=== PATIENT | female | born 1980 | race Caucasian/White ===

== ENCOUNTER 2022-08-05 06:00 | Inpatient (IN) | payer OTHER ==
[~2022-08-05 06:00] MED LIST: CITRIC ACID/SODIUM CITRATE 30 ML UNIT-DOSE CUP PO ONE; ELECTROLYTE-148 SOLN 500 ML IV SCH
[2022-08-05] MEDS ORDERED: ELECTROLYTE-148 SOLN 500 ML IV SCH (06:30)
[2022-08-05 07:47] VITALS: BMI 31.9
[2022-08-05] MEDS ORDERED: OXYTOCIN 30 UNITS in 0.9% NS 30 UNIT/500 ML INFUS.BAG IVPB ONE (08:00)
[2022-08-05] MEDS ORDERED: DEXAMETHASONE SOD PHOSPHATE 4 MG/1 ML VIAL ONE (08:01)
[2022-08-05] MEDS ORDERED: ceFAZolin SODIUM 1 GM VIAL ONE (08:01)
[2022-08-05] MEDS ORDERED: ONDANSETRON 4 MG/2 ML VIAL ONE (08:01)
[2022-08-05] MEDS ORDERED: METOCLOPRAMIDE HCL INJECTION 10 MG/2 ML VIAL ONE (08:01)
[2022-08-05] MEDS ORDERED: morphine SULFATE/PF 1 MG/2 ML (2cc Syringe - QUVA) ONE (08:02)
[2022-08-05] MEDS ORDERED: PHENYLEPHRINE HCL 10 MG/1 ML SINGLE DOSE VIAL ONE (08:02)
[2022-08-05] MEDS ORDERED: FENTANYL CITRATE/PF 50 MCG/ML VIAL ONE (08:02)
[2022-08-05] MEDS ORDERED: ELECTROLYTE-148 SOLN 500 ML IV ONE (08:08)
[2022-08-05] MEDS ORDERED: ELECTROLYTE-148 SOLN 1,000 ML IV SCH (08:15)
[2022-08-05] MEDS ORDERED: morphine SULFATE/PF 1 MG/2 ML (2cc Syringe - QUVA) IT ONE (08:23)
[2022-08-05] MEDS ORDERED: KETOROLAC TROMETHAMINE 30 MG/1 ML VIAL ONE (08:59)
[2022-08-05] MEDS: OXYTOCIN 20 UNITS in 0.9% NS 20 UNIT/1,000 ML INFUS.BAG IV SCH ×2 (09:35→17:01)
[2022-08-05] MEDS ORDERED: ONDANSETRON 4 MG/2 ML VIAL IVPUSH PRN (09:41)
[2022-08-05] MEDS ORDERED: IBUPROFEN 800 MG/8 ML IJ IVPB PRN (09:42)
[2022-08-05] MEDS ORDERED: SENNOSIDES/DOCUSATE COMBO (SENNA PLUS) TABLET (UD) PO PRN (09:42)
[2022-08-05] MEDS ORDERED: METHYLERGONOVINE MALEATE 0.2 MG/1 ML AMP IM PRN (09:42)
[2022-08-05] MEDS ORDERED: ACETAMINOPHEN 1000 MG/100 ML BAG IVPB PRN (09:45)
[2022-08-05] MEDS: FERROUS SO4 325 MG TABLET (FP) PO SCH ×2 (11:43→21:51)
[2022-08-05] MEDS: PRENATAL VITAMINS W/ FOLIC ACID TABLET (FP) PO SCH (11:43)
[2022-08-05] MEDS ORDERED: ACETAMINOPHEN INJECTION 100 ML IVPB ONE (12:28)
[2022-08-05] MEDS ORDERED: oxyCODONE HCL 5 MG TABLET PO PRN (21:42)
[2022-08-05] MEDS: SIMETHICONE 80 MG TAB.CHEW (FP) PO PRN (21:50)
[2022-08-05] MEDS: IBUPROFEN 600 MG TABLET (FP) PO PRN (21:51)
[2022-08-06] MEDS: IBUPROFEN 600 MG TABLET (FP) PO PRN ×3 (04:07→20:28)
[2022-08-06] MEDS: SIMETHICONE 80 MG TAB.CHEW (FP) PO PRN ×4 (04:07→20:29)
[2022-08-06 06:33] LABS: BASO % 0.4 % (0-2.0); EOS % 0.5 % (0-4.5); HEMATOCRIT 28.2 % (32.4-45.2); HEMOGLOBIN 9.5 GM/dL (10.7-15.3); LYMPH % 16.8 % (8-40); MCH 31.2 pg (25.7-33.7); MCHC 33.6 g/dl (32.0-36.0); MEAN CELL VOLUME 92.9 fl (80-96); MEAN PLT VOLUME 9.5 fl (7.5-11.1); MONO % 10.8 % (3.8-10.2); NEUT % 71.5 % (42.8-82.8); PLATELET COUNT 158 10^3/uL (134-434); RBC 3.04 M/mm3 (3.60-5.2); RDW 13.9 % (11.6-15.6); WHITE BLOOD COUNT 14.4 K/mm3 (4.0-10.0)
[2022-08-06] MEDS: ACETAMINOPHEN 325 MG TABLET (FP) PO PRN ×2 (07:12→15:11)
[2022-08-06] MEDS: oxyCODONE HCL 5 MG TABLET PO PRN (08:33)
[2022-08-06] MEDS: FERROUS SO4 325 MG TABLET (FP) PO SCH ×2 (09:02→21:17)
[2022-08-06] MEDS: PRENATAL VITAMINS W/ FOLIC ACID TABLET (FP) PO SCH (09:02)
[2022-08-06] MEDS ORDERED: BISACODYL 10 MG SUPP.RECT RC PRN (09:42)
[2022-08-06] MEDS: OXYTOCIN 20 UNITS in 0.9% NS 20 UNIT/1,000 ML INFUS.BAG IV SCH (09:57)
[2022-08-07] MEDS: oxyCODONE HCL 5 MG TABLET PO PRN (01:23)
[2022-08-07] MEDS: IBUPROFEN 600 MG TABLET (FP) PO PRN (06:31)
[2022-08-07] MEDS: PRENATAL VITAMINS W/ FOLIC ACID TABLET (FP) PO SCH (09:03)
[2022-08-07] MEDS: SIMETHICONE 80 MG TAB.CHEW (FP) PO PRN (09:03)
[2022-08-07] MEDS: FERROUS SO4 325 MG TABLET (FP) PO SCH (09:03)
[2022-08-07 09:43] VITALS: BP 119/80; PULSE 79; RESP 18; TEMP 97.9
== END 2022-08-07 13:00 | disposition home or self-care (01) | DRG 561 ==
LOC: JLDR 06:00 → J3W 14:05
PROVIDERS: ADMIT Obstetrics & Gynecology; ATTEND Obstetrics & Gynecology
DX: O14.95 Unspecified pre-eclampsia, complicating the puerperium (principal); J98.11 Atelectasis; R00.1 Bradycardia, unspecified
CPT/HCPCS: 36415; 85025; 88307-TC

== ENCOUNTER 2022-08-10 11:01 | Inpatient (IN) | payer OTHER ==
[2022-08-10] MEDS ORDERED: hydrALAZINE HCL 20 MG/ML VIAL IVPUSH ONE (11:35)
[2022-08-10] MEDS ORDERED: hydrALAZINE HCL 20 MG/ML VIAL ONE (11:39)
[2022-08-10 11:57] LABS: VENOUS BASE EXCESS -0.5 mmol/L (-2-2); VENOUS O2 SATURATION 58.1 % (70-80); VENOUS PCO2 42.9 mmHg (38-52); VENOUS PH 7.379 (7.310-7.410)
[2022-08-10] MEDS ORDERED: METOCLOPRAMIDE HCL INJECTION 10 MG/2 ML VIAL IVPUSH ONE (11:57)
[2022-08-10] MEDS ORDERED: ACETAMINOPHEN 1000 MG/100 ML BAG IVPB ONE (11:57)
[2022-08-10 11:59] LABS: BASO % 0.4 % (0-2.0); EOS % 1.3 % (0-4.5); HEMATOCRIT 33.3 % (32.4-45.2); HEMOGLOBIN 11.1 GM/dL (10.7-15.3); LYMPH % 26.9 % (8-40); MCH 31.5 pg (25.7-33.7); MCHC 33.3 g/dl (32.0-36.0); MEAN CELL VOLUME 94.3 fl (80-96); MEAN PLT VOLUME 9.2 fl (7.5-11.1); MONO % 12.4 % (3.8-10.2); PLATELET COUNT 256 10^3/uL (134-434); RBC 3.53 M/mm3 (3.60-5.2); RDW 13.7 % (11.6-15.6); WHITE BLOOD COUNT 7.6 K/mm3 (4.0-10.0)
[2022-08-10] MEDS ORDERED: ACETAMINOPHEN INJECTION 100 ML IVPB ONE ×2 (12:09→12:40)
[2022-08-10] MEDS ORDERED: METOCLOPRAMIDE HCL INJECTION 10 MG/2 ML VIAL ONE ×2 (12:09→12:40)
[2022-08-10 12:13] LABS: INR 0.93 (0.83-1.09); PROTHROMBIN TIME (PATIENT) 10.8 SEC (9.7-13.0)
[2022-08-10 12:17] LABS: POTASSIUM 4.1 mmol/L (3.5-5.1)
[2022-08-10 12:19] LABS: ALBUMIN 2.9 g/dl (3.4-5.0); BLOOD UREA NITROGEN 19.7 mg/dL (7-18); CALCIUM 9.3 mg/dL (8.5-10.1); MAGNESIUM 1.9 mg/dL (1.8-2.4)
[2022-08-10 12:22] LABS: CREATININE 0.8 mg/dL (0.55-1.3)
[2022-08-10 12:24] LABS: BILIRUBIN,TOTAL 0.3 mg/dL (0.2-1); TOT PROT 6.3 g/dl (6.4-8.2)
[2022-08-10] MEDS ORDERED: NIFEdipine E.R. 30 MG TABLET PO ONE ×2 (12:26→13:33)
[2022-08-10] MEDS ORDERED: MAGNESIUM SULF 50% (8.12 MEQ/2 ML-1 GM VIAL) IVPB ONE (12:27)
[2022-08-10 12:28] LABS: N-TERMINAL BNP 509.6 pg/ml (5-125)
[2022-08-10] MEDS ORDERED: MAGNESIUM SULFATE 20GM/500ML - 20 GM/500 ML INFUS.BAG IVPB SCH (12:30)
[2022-08-10] MEDS ORDERED: MAGNESIUM IN WATER 4 GM/50 ML PREMIX BAG IVPB ONE (12:45)
[2022-08-10] MEDS ORDERED: hydrOXYzine PAMOATE 25 MG CAPSULE (FP) PO ONE ×2 (12:45→13:38)
[2022-08-10] MEDS ORDERED: MAGNESIUM SULFATE 4GM/100CC IN STERILE WATER IVPB ONE (13:00)
[2022-08-10 14:25] LABS: EPI CELLS 23 /uL (0-25.1); HYALINE CASTS 1 /uL (0-3.1); PH,URINE 8.5 (5.0-8.0); URINE APPEARANCE CLEAR; URINE BACTERIA 97 /uL (0-1359); URINE BILIRUBIN NEGATIVE (NEGATIVE); URINE COLOR ORANGE; URINE GLUCOSE (UA) NEGATIVE (NEGATIVE); URINE KETONE NEGATIVE (NEGATIVE); URINE LEUK ESTERASE 2+ (NEGATIVE); URINE NITRITE NEGATIVE (NEGATIVE); URINE PROTEIN 2+ (NEGATIVE); URINE RBC 765 /uL (0-23.9); URINE UROBILINOGEN 0.2 mg/dL (0.2-1.0); URINE WBC 187 /uL (0-25.8)
[2022-08-10] MEDS: ACETAMINOPHEN 1000 MG/100 ML BAG IVPB PRN ×2 (17:35→23:39)
[2022-08-10] MEDS ORDERED: HYDROmorphone HCl 2 MG/ML VIAL IVPUSH STA (19:31)
[2022-08-10] MEDS ORDERED: oxyCODONE HCL 5 MG TABLET PO PRN (19:37)
[2022-08-10] MEDS ORDERED: ACETAMINOPHEN 325 MG TABLET (FP) PO PRN (19:39)
[2022-08-10] MEDS: MUPIROCIN 2% TOPICAL OINTMENT FOR DECOLONIZATION NS SCH (21:46)
[2022-08-10] MEDS ORDERED: CEFTRIAXONE 1,000 MG in DEXTROSE 5%-WATER - 50 ML IVPB STA (21:51)
[2022-08-10] MEDS ORDERED: CHLORHEXIDINE GLUCONATE 4% CLEANSER FOR DECOLONIZATION TP SCH (22:00)
[2022-08-10] MEDS ORDERED: CEFTRIAXONE 1 GM in DEXTROSE 5%-WATER - 50 ML IVPB STA (22:38)
[2022-08-11 02:46] LABS: MAGNESIUM 3.8 mg/dL (1.8-2.4)
[2022-08-11] MEDS: ACETAMINOPHEN 1000 MG/100 ML BAG IVPB PRN (06:37)
[2022-08-11 07:46] VITALS: TEMP 98.7
[2022-08-11 07:50] LABS: BASO % 0.5 % (0-2.0); HEMATOCRIT 36.6 % (32.4-45.2); MCH 30.6 pg (25.7-33.7); MCHC 32.9 g/dl (32.0-36.0); MEAN CELL VOLUME 93.2 fl (80-96); MONO % 14.6 % (3.8-10.2); NEUT % 62.9 % (42.8-82.8); PLATELET COUNT 294 10^3/uL (134-434); RBC 3.92 M/mm3 (3.60-5.2); RDW 13.6 % (11.6-15.6); WHITE BLOOD COUNT 9.2 K/mm3 (4.0-10.0)
[2022-08-11 08:05] LABS: POTASSIUM 4.7 mmol/L (3.5-5.1)
[2022-08-11 08:11] LABS: ALBUMIN 2.9 g/dl (3.4-5.0); CALCIUM 8.8 mg/dL (8.5-10.1); CREATININE 0.7 mg/dL (0.55-1.3); PHOSPHOROUS 4.6 mg/dL (2.5-4.9)
[2022-08-11 08:12] LABS: BILIRUBIN,TOTAL 0.3 mg/dL (0.2-1); BLOOD UREA NITROGEN 12.4 mg/dL (7-18); MAGNESIUM 4.4 mg/dL (1.8-2.4)
[2022-08-11 08:13] LABS: TOT PROT 6.3 g/dl (6.4-8.2)
[2022-08-11 08:36] LABS: PHOSPHOROUS 4.4 mg/dL (2.5-4.9)
[2022-08-11] MEDS: DOCUSATE SODIUM 100 MG CAPSULE (FP) PO SCH ×2 (09:24→14:58)
[2022-08-11] MEDS: MUPIROCIN 2% TOPICAL OINTMENT FOR DECOLONIZATION NS SCH (09:25)
[2022-08-11] MEDS ORDERED: CEFTRIAXONE 1 GM in DEXTROSE 5%-WATER - 50 ML IVPB SCH (10:00)
[2022-08-11] MEDS ORDERED: ENOXAPARIN NA (PORCINE) 40 MG/0.4 ML DISP.SYRIN SQ SCH (10:00)
[2022-08-11] MEDS ORDERED: NIFEdipine E.R. 30 MG TABLET PO SCH (10:00)
[2022-08-11 13:15] VITALS: RESP 20
[2022-08-11 13:20] VITALS: BMI 30.4
[2022-08-11] MEDS ORDERED: IBUPROFEN 400 MG TABLET (FP) PO ONE (15:00)
[2022-08-11 17:31] VITALS: BP 115/87; PULSE 74
[2022-08-12 20:07] LABS: URINE APPEARANCE CLEAR; URINE BILIRUBIN NEGATIVE (NEGATIVE); URINE COLOR YELLOW; URINE GLUCOSE (UA) NEGATIVE (NEGATIVE); URINE KETONE NEGATIVE (NEGATIVE); URINE LEUK ESTERASE NEGATIVE (NEGATIVE); URINE NITRITE NEGATIVE (NEGATIVE); URINE PROTEIN NEGATIVE (NEGATIVE); URINE UROBILINOGEN 0.2 mg/dL (0.2-1.0)
== END 2022-08-11 17:34 | disposition home or self-care (01) | DRG 561 ==
LOC: JER 11:01 → JERBED 14:58 → JICU 15:10
PROVIDERS: ADMIT Internal Medicine Pulmonary Disease; ATTEND Internal Medicine Pulmonary Disease
DX: O14.95 Unspecified pre-eclampsia, complicating the puerperium (principal); R00.1 Bradycardia, unspecified; O72.1 Other immediate postpartum hemorrhage; O86.20 Urinary tract infection following delivery, unspecified; G89.18 Other acute postprocedural pain; R07.89 Other chest pain; R74.01 Elevation of levels of liver transaminase levels; R80.9 Proteinuria, unspecified; N39.0 Urinary tract infection, site not specified
CPT/HCPCS: 0241U-QW; 36415; 70450-TC; 71045-TC-FY; 71275-TC; 76705-TC; 80053; 81003; 82570; 82803; 83036; 83735; 83880; 84100; 84156; 84443; 84484; 85025; 85610; 85730; 86850; 86870; 86900; 86901; 86902; 87086; 93005; 93010; 93306-TC; 99291; Q9967